=== PATIENT | male | born 1995 | race Two or more races ===

== ENCOUNTER 2018-08-13 16:15 | Emergency (ER) | payer SELFPAY ==
[2018-08-13] MEDS ORDERED: IBUPROFEN 800 MG TABLET PO ONE (16:35)
--- NOTE | 2018-08-13 16:36 | ER Document Report ---
ED Medical Screen (RME) - General Chief Complaint: Chest Wall Pain Stated Complaint: CHEST PAIN Time Seen by Provider: 08/13/18 16:29 Mode of Arrival: Ambulatory Information source: Patient Notes: Patient presents complaining of left-sided chest pain for the past 3 days. No cough. Chest pain increases with movement of left upper extremity and trunk. I have greeted and performed a rapid initial assessment of this patient. A comprehensive ED assessment and evaluation of the patient, analysis of test results and completion of the medical decision making process will be conducted by additional ED providers. TRAVEL OUTSIDE OF THE [place] IN LAST 30 DAYS: No - Related Data Allergies/Adverse Reactions: No Known Allergies Allergy (Verified 08/13/18 16:16) Physical Exam - Vital signs Vitals: Temp Pulse Resp BP Pulse Ox 98.0 F 77 16 144/71 H 99 08/13/18 16:20 08/13/18 16:20 08/13/18 16:20 08/13/18 16:20 08/13/18 16:20 - General Notes: Left anterior chest wall tenderness with palpation Course - Vital Signs Vital signs: Temp Pulse Resp BP Pulse Ox 98.0 F 77 16 144/71 H 99 08/13/18 16:20 08/13/18 16:20 08/13/18 16:20 08/13/18 16:20 08/13/18 16:20
--- NOTE | 2018-08-13 17:01 | RADIOLOGY REPORT (SQ) ---
EXAM DESCRIPTION: CHEST 2 VIEWS COMPLETED DATE/TIME: 08/13/2018 4:53 pm REASON FOR STUDY: left side chest pain COMPARISON: None. EXAM PARAMETERS: NUMBER OF VIEWS: two views TECHNIQUE: Digital Frontal and Lateral radiographic views of the chest acquired. RADIATION DOSE: NA LIMITATIONS: none FINDINGS: LUNGS AND PLEURA: No opacities, masses or pneumothorax. No pleural effusion. MEDIASTINUM AND HILAR STRUCTURES: No masses or contour abnormalities. HEART AND VASCULAR STRUCTURES: Heart normal size. No evidence for failure. BONES: No acute findings. HARDWARE: None in the chest. OTHER: No other significant finding. IMPRESSION: NO ACUTE RADIOGRAPHIC FINDING IN THE CHEST. TECHNICAL DOCUMENTATION: JOB ID: [id number] [employer]- All Rights Reserved Reading location - IP/workstation name: [email or web address]
[2018-08-13 19:05] VITALS: BP 139/76
--- NOTE | 2018-08-13 21:26 | EKG REPORT ---
SEVERITY:- ABNORMAL ECG - SINUS RHYTHM LEFT ATRIAL ABNORMALITY : Confirmed by: Lidia Etienne MD 13-Aug-2018 21:25:49
--- NOTE | 2018-08-14 03:40 | ER Document Report ---
Entered by FARIDA VILLATORO SCRIBE 08/13/18 1847 Acting as scribe for:VALDEZ OVIEDO MD ED Cardiac - General Chief Complaint: Chest Wall Pain Stated Complaint: CHEST PAIN Time Seen by Provider: 08/13/18 16:29 Mode of Arrival: Ambulatory Information source: Patient, Friend Cannot obtain history due to: Other - History, physical, and explanation to the patient, were all done using an barrel assembly inspector through the [employer] system. Notes: Patient is a 23-year-old male presenting to the emergency department complaining of chest pain. Patient speaks through barrel assembly inspector at bedside stating that "it feels like there is a ball or mass popped on my chest". Scaffold Builder states that the patient says it started 3 months ago, it is intermittent. Scaffold Builder states that it usually gets bigger than it is at this moment. Scaffold Builder states that the patient says it "swells or puffs up". Scaffold Builder states that it hurts more when the patient coughs or breathes deeply. TRAVEL OUTSIDE OF THE [place] IN LAST 30 DAYS: No - Related Data Allergies/Adverse Reactions: No Known Allergies Allergy (Verified 08/13/18 16:16) Past Medical History - General Information source: Patient - Social History Smoking Status: Former Smoker Cigarette use (# per day): Yes Chew tobacco use (# tins/day): No Frequency of alcohol use: Social Drug Abuse: None Family History: Reviewed & Not Pertinent Review of Systems - Review of Systems Constitutional: No symptoms reported EENT: No symptoms reported Cardiovascular: See HPI, Chest pain Respiratory: No symptoms reported Gastrointestinal: No symptoms reported Genitourinary: No symptoms reported Male Genitourinary: No symptoms reported Musculoskeletal: No symptoms reported Skin: No symptoms reported Hematologic/Lymphatic: No symptoms reported Neurological/Psychological: No symptoms reported -: Yes All other systems reviewed and negative Physical Exam - Vital signs Vitals: Temp Pulse Resp BP Pulse Ox 98.0 F 77 16 144/71 H 99 08/13/18 16:20 08/13/18 16:20 08/13/18 16:20 08/13/18 16:20 08/13/18 16:20 - Notes Notes: Physical Exam: General: Alert, appears well. HEENT: Normocephalic. Atraumatic. PERRL. Extraocular movements intact. Oropha rynx clear. Neck: Supple. Non-tender. Respiratory: No respiratory distress. Clear and equal breath sounds bilaterally. Cardiovascular: Regular rate and rhythm. Chest: Left pectoralis major tenderness to palpation. Sub-pectoralis major is more tender to palpation than anywhere else in thee chest. intercostal spaces tenderness palpation. Abdominal: Normal Inspection. Non-tender. No distension. Normal Bowel Sounds. Back: Non-tender. No deformity or step off. Extremities: Moves all four extremities. Upper extremities: Normal inspection. Normal ROM. Lower extremities: Normal inspection. No edema. Normal ROM. Neurological: Normal cognition. AAOx4. Normal speech. Psychological: Normal affect. Normal Mood. Skin: Warm. Dry. Normal color. Course - Vital Signs Vital signs: Temp Pulse Resp BP Pulse Ox 98.0 F 77 16 144/71 H 99 08/13/18 16:20 08/13/18 16:20 08/13/18 16:20 08/13/18 16:20 08/13/18 16:20 - Diagnostic Test Radiology reviewed: Image reviewed, Reports reviewed - Chest x-ray is unremarkable - EKG Interpretation by De EKG shows normal: Sinus rhythm, [place], Intervals, QRS Complexes, ST-T Waves Rate: Normal - 74 Rhythm: NSR P Waves: LAE Discharge - Discharge Clinical Impression: Anterior chest wall pain Condition: Stable Disposition: HOME, SELF-CARE Additional Instructions: Chest Wall Pain Your chest pain has been diagnosed as coming from the chest wall. This is often caused by straining the muscles or joints in the chest during physical activity, direct trauma, coughing, or vigorous vomiting. Persons with arthritis are especially prone to this type of pain, due to inflammation of the cartilage joints near the breast bone. Occasionally, no cause can be found. Rest from strenuous physical activity. This kind of chest pain is usually made worse by movement of the chest. Depending on the symptoms, we may prescribe medicine for pain, muscle relaxation, and antiinflammatory effects. If the pain is new, and seems to be due to muscle strain, cold packs can help. Otherwise, apply gentle warmth to the painful area for 15 minutes every hour or two. You should contact the doctor immediately if things change. Further evaluation is needed if you develop a fever or cough, if the nature of the pain changes, or if you become short of breath. The pain you are experiencing in your left anterior chest wall seems to be related to the bones, connective tissue between the bones, and the muscles in your chest. When it is painful, you should limit using the left upper arm. Limit or avoid activities that seem to make the pain worse. Take ibuprofen 600 mg every 8 hours, or 2 Aleve tablets every 12 hours to help with the discomfort. Moist heat may help when it is particularly painful. It does not appear to be swollen or puffed out today. I am unable to explain how it could swell up the way you describe and go back down on a regular basis. You will need to be seen when it is swollen to help make a diagnosis. You should follow-up with [facility] if you notice the area become swollen and stays swollen. Otherwise, follow-up with a local medical doctor to manage her discomfort if it continues to be a problem. RETURN TO THE EMERGENCY ROOM IF ANY NEW OR WORSENING SYMPTOMS. Vee Attestation: 08/13/18 18:47 I personally performed the services described in the documentation, reviewed and edited the documentation which was dictated to the scribe in my presence, and it accurately records my words and actions. I personally performed the services described in the documentation, reviewed and edited the documentation which was dictated to the scribe in my presence, and it accurately records my words and actions.
== END 2018-08-13 19:05 | disposition home or self-care (01) ==
LOC: ER 16:15
DX: R07.89 Other chest pain (principal); Z87.891 Personal history of nicotine dependence
CPT/HCPCS: 71046; 93005; 93010; 99284